=== PATIENT | male | born 1975 | race Caucasian/White ===

== ENCOUNTER 2023-02-08 06:05 | Outpatient (CLI) | payer OTHER ==
[~2023-02-08] VITALS: Ht 177.8 cm; Wt 83.9 kg
[~2023-02-08 06:05] MED LIST: HYDROCODONE 5/500; LVF500T; SULF1TAB38
[2023-02-10] MEDS ORDERED: ATOR20TA66 PO (08:01)
[2023-02-10] MEDS ORDERED: SERT50TA2 PO (08:01)
== END 2023-02-10 08:05 | disposition home or self-care (01) ==
LOC: PREOP 06:05
PROVIDERS: ATTEND Surgery
DX: Z01.818 Encounter for other preprocedural examination (principal); Z12.11 Encounter for screening for malignant neoplasm of colon

== ENCOUNTER 2023-02-21 09:05 | Day surgery (SDC) | payer OTHER ==
[~2023-02-21] VITALS: Ht 177.8 cm; Wt 83.9 kg
[~2023-02-21 09:05] MED LIST changes: +ATOR20TA66 PO; +SERT50TA2 PO
[2023-02-21] MEDS ORDERED: LACTATED RINGERS 1,000 ML IV STA (09:06)
[2023-02-21 09:30] VITALS: BP 142/98
[2023-02-21] MEDS ORDERED: PROPOFOL INJECTION 50 ML IV ONE (09:41)
--- NOTE | 2023-02-21 10:02 | Discharge Inst-Simple/Standard ---
Discharge Inst-Standard Patient Instructions/Follow Up Plan of Care/Instructions/FU: 2 weeks Nhi Activity as Tolerated: Yes Discharge Diet: No Restrictions NINA ANDREWS DO Feb 21, 2023 10:02
--- NOTE | 2023-02-21 10:04 | Progress Note-Post Operative ---
Post-Operative Progess Note Surgeon (s)/Cafe Cook (s) Surgeon NINA ANDREWS DO Cafe Cook: na Pre-Operative Diagnosis screening colonoscopy Post-Operative Diagnosis Colon Polyp Procedure & Operative Findings Date of Procedure 02/21/23 Procedure Performed/Findings Colonoscopy with hot biopsy polypectomy x 1 Anesthesia Type per board saw runner Estimated Blood Loss Estimated blood loss (mL): none Specimens/Packing Specimens Removed Cecal polyp x 1 NINA ANDREWS DO Feb 21, 2023 10:03
[2023-02-21 10:05] VITALS: BP 100/72
[2023-02-21 10:10] VITALS: BP 100/66
[2023-02-21 10:15] VITALS: BP 102/66
[2023-02-21 10:47] VITALS: BP 102/66
--- NOTE | 2023-02-21 12:16 | Anesthesia-General Post-Op ---
MAC Patient Condition Mental Status/LOC: Same as Preop Cardiovascular: Satisfactory Nausea/Vomiting: Absent Respiratory: Satisfactory Pain: Controlled Complications: Absent Post Op Complications Complications None Follow Up Care/Instructions Patient Instructions None needed. Anesthesiology Discharge Order Discharge Order Patient is doing well, no complaints, stable vital signs, no apparent adverse anesthesia problems. No complications reported per nursing. MAURA HORTA CRNA Feb 21, 2023 12:16
--- NOTE | 2023-02-21 14:32 | OPERATIVE REPORT ---
DATE OF SERVICE: 02/21/2023 PREOPERATIVE DIAGNOSIS: Screening colonoscopy. POSTOPERATIVE DIAGNOSIS: Cecal polyp. PROCEDURE: Colonoscopy with hot biopsy polypectomy x1. SURGEON: Nina Hankins DO ANESTHESIA: Per FORMS ANALYST. ESTIMATED BLOOD LOSS: None. COMPLICATIONS: None. INDICATIONS: The patient is a 47-year-old male, needing screening colonoscopy. He understands risks and benefits of procedure and wishes to proceed. Consent was signed in chart. DESCRIPTION OF PROCEDURE: The patient was taken to endoscopy suite, placed in left lateral recumbent position. Timeout was performed. Digital rectal exam was performed. No palpable polyps, masses or ulcerations. Scope was inserted in the rectum, advanced all the way to the cecum with minimal difficulty. Prep was adequate. A small polyp was present in the cecum, which hot biopsy polypectomy was performed. Scope was then slowly retracted back. No polyps, masses or ulcerations in the remainder of the ascending, transverse, descending and sigmoid colon. Once in the rectum, scope was retroflexed noting no other pathology. Scope was returned to its normal position and slowly withdrawn until completely removed. The patient tolerated the procedure well without complications, taken to recovery room in stable condition. RECOMMENDATIONS: The patient will need repeat colonoscopy in 5 years. Any issues before that, be seen at that time. He will follow up on pathology in 2 weeks. Job ID: [id number] DocumentID: [id number] Dictated Date: 02/21/2023 10:03:53 Skilled Laborer Date: 02/21/2023 14:30:00 Dictated By: NINA HANKINS DO
== END 2023-02-21 11:00 | disposition home or self-care (01) ==
LOC: ENDO 09:05
PROVIDERS: ATTEND Surgery
DX: Z12.11 Encounter for screening for malignant neoplasm of colon (principal); K63.5 Polyp of colon; Z28.310 Unvaccinated for COVID-19
CPT/HCPCS: 88305